=== PATIENT | male | born 1980 | race Caucasian/White ===

== ENCOUNTER 2018-07-09 00:45 | Emergency (ER) | payer SELFPAY ==
--- NOTE | 2018-07-09 00:51 | EDPHY ---
H & P Time Seen by Provider: 07/09/18 00:54 HPI/ROS: HPI CHIEF COMPLAINT: Alcohol Intoxication HISTORY OF PRESENT ILLNESS: 37-year-old male, states that he drank too much alcohol and smoked too much marijuana tonight. He reports that he had 5 rum and Cokes, and Catina. Additionally he smoked marijuana. He states he feels too intoxicated. He may contact with police and EMS on the sidewalk. No trauma reported. He asked to be brought to the emergency room for evaluation. He arrived to the emergency room in no acute distress. Does smell of alcohol. Denies any complaints. Appears to be intoxicated. Past Medical History: Denies medical history Past Surgical History: Denies surgical history Social History: Alcohol this evening, marijuana this evening. Denies other illicit drugs. Family History: Noncontributory ROS REVIEW OF SYSTEMS: 10 Systems were reviewed and negative with the exception of the elements mentioned in the history of present illness. Exam Constitutional Intoxicated, triage nursing summary reviewed, vital signs reviewed, Sleepy, smells of alcohol Eyes normal conjunctivae and sclera, horizontal beating nystagmus consistent acute alcohol intoxication, otherwise pupils equal and react to light HENT normal inspection, atraumatic, moist mucus membranes, no epistaxis, neck supple/ no meningismus, no raccoon eyes. Respiratory clear to auscultation bilaterally, normal breath sounds, no respiratory distress, no wheezing. Cardiovascular rate normal, regular rhythm, no murmur, no edema, distal pulses normal. Gastrointestinal soft, non-tender, no rebound, no guarding, normal bowel sounds, no distension, no pulsatile mass. Genitourinary no CVA tenderness. Musculoskeletal no midline vertebral tenderness, full range of motion, no calf swelling, no tenderness of extremities, no meningismus, good pulses, neurovascularly intact. Skin pink, warm, & dry, no rash, skin atraumatic. Neurologic sleepy, intoxicated with alcohol,, alert and oriented x 3, AAOx3, moves all 4 extremities equally, motor intact, sensory intact, CN II-XII intact , , normal vision, normal speech. Psychiatric normal mood/affect. Heme/Lymph/Immune no lymphadenopathy. Differential Diagnosis: Includes but is not limited to in a particular order acute alcohol intoxication, alcohol abuse, dehydration, electrolyte abnormality , nausea vomiting from acute alcohol intoxication Medical Decision Making: Plan for this patient breath alcohol, and monitor for worsening of condition. Once patient is more sober he can be safely discharged. Re-evaluation: Breath alcohol 61. 6:25 a.m.. Patient re-evaluated ambulated well throughout the emergency room without difficulty. Patient has no complaints. States he feels comfortable being discharged. He is calm and cooperative, sober. Source: Patient, EMS Constitutional: Initial Vital Signs Temperature (C) 36.4 C 07/09/18 00:49 Heart Rate 94 07/09/18 00:49 Respiratory Rate 18 07/09/18 00:49 Blood Pressure 116/69 07/09/18 00:49 O2 Sat (%) 96 07/09/18 00:49 O2 Delivery Mode Room Air Allergies/Adverse Reactions: aspirin [Aspirin] Allergy (Severe, Verified 07/09/18 00:48) Flushing Departure - Departure Disposition: Home, Routine, Self-Care Clinical Impression: Alcoholic intoxication Qualifiers: Complication of substance-induced condition: uncomplicated Qualified Code(s): F10.920 - Alcohol use, unspecified with intoxication, uncomplicated Condition: Good Instructions: Alcohol Intoxication (ED), Cannabis Abuse (ED) Referrals: Patient,NotPresent [Unknown] - As per Instructions
[2018-07-09 06:34] VITALS: BP 115/67
== END 2018-07-09 06:34 | disposition home or self-care (01) ==
LOC: EDUNIT#
DX: F10.920 Alcohol use, unspecified with intoxication, uncomplicated (principal)